=== PATIENT | male | born 1980 | race Caucasian/White ===

== ENCOUNTER 2017-12-22 05:58 | Emergency (ER) | payer MEDICAID, OTHER ==
[2017-12-22] MEDS ORDERED: CHLORDIAZEPOXIDE 25MG PREPK#6 BTL TAKEHOME ONE (06:25)
--- NOTE | 2017-12-22 06:34 | EDPHY ---
H & P Stated Complaint: possible ETOH withdrawal, anxiety, jittery Time Seen by Provider: 12/22/17 06:07 HPI/ROS: Chief Complaint: Alcohol withdrawal HPI: 37-year-old male with a history of alcoholism in the past. Patient states that he fell off the wagon 2 weeks ago is been drinking heavily since then. His last drink was about 36 hr ago after a day of drinking very heavily. He is now feeling increasingly jittery and tremulous similar to prior episodes of alcohol withdrawal. Some nausea but no vomiting. He has never had an alcohol withdrawal seizure in the past. No fevers or chills. No chest pain or shortness of breath. ROS: 10 point Review of Systems is negative except as noted in the HPI. PMH: Denies Social History: No smoking, recent heavy alcohol, no recreational drug use Family History: non-contributory Physical Exam: Gen: Awake, Alert, No Distress, mildly tremulous HEENT: Nose: no rhinorrhea Eyes: PERRLA, EOMI Mouth: Moist mucosa Neck: Supple, no JVD Chest: nontender, lungs clear to auscultation Heart: S1, S2 normal, no murmur Abd: Soft, non-tender, no guarding Back: no CVA tenderness, no midline tenderness Ext: no edema, non-tender Skin: no rash Neuro: CN II-XII intact, Sensation grossly intact, Strength 5/5 in bilateral upper and lower extremities - Personal History Current Tetanus/Diphtheria Vaccine: Yes - Medical/Surgical History Hx Asthma: No Hx Chronic Respiratory Disease: No Hx Diabetes: No Hx Cardiac Disease: No Hx Cirrhosis: No Hx Alcoholism: Yes Hx HIV/AIDS: No Hx Splenectomy or Spleen Trauma: No Other PMH: ETOH abuse, anxiety - Social History Smoking Status: Never smoked Constitutional: Initial Vital Signs Temperature (C) 36.6 C 12/22/17 06:00 Heart Rate 108 H 12/22/17 06:00 Respiratory Rate 18 12/22/17 06:00 Blood Pressure 139/106 H 12/22/17 06:00 O2 Sat (%) 96 12/22/17 06:00 O2 Delivery Mode Room Air Allergies/Adverse Reactions: Penicillins Allergy (Verified 12/22/17 06:03) Home Medications: Medication Instructions Recorded [facility] 12/22/17 Medical Decision Making ED Course/Re-evaluation: 37-year-old male alcohol with dry all with mild tremulousness and tachycardia. Patient has already made arrangements to go back to AA and to commence naltrexone starting in 5 days. Is requesting treatment for his withdrawal symptoms. He has never had an alcohol withdrawal seizure. Will discharge with Librium prepack, follow up with primary care physician in his AA meetings as an outpatient. Departure - Departure Disposition: Home, Routine, Self-Care Clinical Impression: Alcohol withdrawal Condition: Good Instructions: Alcohol Withdrawal (ED), Chlordiazepoxide (By mouth) Additional Instructions: You may take the chlordiazepoxide, 25 mg every 2-4 hours as needed for alcohol withdrawal symptoms. Follow up with primary care physician in 3-4 days for further evaluation. Please continue attending your AA meetings. Return emergency department for increasing shaking, anxiety, chest pain, shortness of breath, fainting, or any other concerns. Referrals: Natasha Ramos MD [Medical Doctor] - As per Instructions
[2017-12-22 06:47] VITALS: BP 136/98
== END 2017-12-22 06:47 | disposition home or self-care (01) ==
DX: F10.239 Alcohol dependence with withdrawal, unspecified (principal)